=== PATIENT | male | born 1990 | race Caucasian/White ===

== ENCOUNTER 2018-04-11 11:32 | Emergency (ER) | payer MEDICAID ==
--- NOTE | 2018-04-11 11:51 | EDPHY ---
H & P Stated Complaint: L testicle pain, CP Time Seen by Provider: 04/11/18 11:50 - Personal History Current Tetanus/Diphtheria Vaccine: Yes Current Tetanus Diphtheria and Acellular Pertussis (TDAP): Yes - Medical/Surgical History Hx Asthma: No Hx Chronic Respiratory Disease: No Hx Diabetes: No Hx Cardiac Disease: No Hx Renal Disease: No Hx Cirrhosis: No Hx Alcoholism: No Hx HIV/AIDS: No Hx Splenectomy or Spleen Trauma: No Other PMH: denies - Social History Smoking Status: Never smoked Constitutional: Initial Vital Signs Temperature (C) 36.7 C 04/11/18 11:41 Heart Rate 42 L 04/11/18 11:41 Respiratory Rate 16 04/11/18 11:41 Blood Pressure 123/79 H 04/11/18 11:41 O2 Sat (%) 97 04/11/18 11:41 O2 Delivery Mode Room Air Allergies/Adverse Reactions: No Known Allergies Allergy (Unverified 04/11/18 11:41) Home Medications: Medication Instructions Recorded NK [No Known Home Meds] 04/11/18 Medical Decision Making - Diagnostics Imaging Results: Imaging Impressions Testicular Ultrasound 04/11/18 12:06 Impression: Normal testicular ultrasound. Findings discussed with Fredy Bullock MD at 12:59 hour, 04/11/2018. ED Course/Re-evaluation: CHIEF COMPLAINT: Left testicular pain HISTORY OF PRESENT ILLNESS: This patient is a healthy 27 year old male complaining of left-sided testicular pain. This began one week ago work in the middle of the night when he woke with testicular pain. It has waxed and waned over the past week. He notes an aching discomfort above the testicle in his inguinal region as well. The patient bicycles frequently, noted pain in his testicles a few times while riding. He denies any other known trauma or unusual activities. He denies fever, urinary complaints, abnormal penile discharge, weakness, numbness, or paresthesias, or other associated symptoms. REVIEW OF SYSTEMS: A comprehensive 10 system review of systems is otherwise negative aside from elements mentioned in the history of present illness and medical decision making. PHYSICAL EXAM: HR, BP, O2 Sat, RR. Temp noted General Appearance: Alert, well hydrated, appropriate, and non-toxic appearing. Head: Atraumatic without scalp tenderness or obvious injury Eyes: Pupils equal, round, reactive to light and accommodation, EOMI, no trauma , no injection. Ears: Clear bilaterally, no perforation, normal landmarks Nose: Atraumatic, no rhinorrhea, clear. Throat: There is no erythema or exudates, no lesions, normal tonsils, mucus membranes moist. Neck: Supple, 2+ carotid upstroke, nontender, no lymphadenopathy. Respiratory: No retractions, no distress, no wheezes, and no accessory muscle use. Lungs are clear to auscultation bilaterally. Cardiovascular: Regular rate and rhythm, no murmurs, rubs, or gallops. Bilateral carotid, radial, dorsalis pedis, and posterior tibial pulses intact. Good capillary refill all extremities. Gastrointestinal: Abdomen is soft, nontender, non-distended, no masses, no rebound, no guarding, no peritoneal signs. Musculoskeletal: Normal active ROM of all extremities, atraumatic. Neurological: Alert, appropriate, and interactive. The patient has normal DTRs and non-focal cranial nerves, motor, sensory, and cerebellar exam. Skin: No rashes, good turgor, no nodules on palpation. Past medical history: Denies Past surgical history: Noncontributory Family history: Noncontributory Social history: Single. Employed. Does not abuse tobacco, drugs, or alcohol. DIFFERENTIAL DIAGNOSIS: Includes but not limited to testicular torsion, epididymitis, orchitis, epididymo-orchitis, hydrocele, inguinal muscle strain. MEDICAL DECISION [id number] y/o male presents with left testicular pain onset one week ago. Plan for testicular ultrasound. Plan for labs including UA, GC/chlamydia. UA is unremarkable. 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 Testicular ultrasound is unremarkable. 13:04 Patient's symptoms likely consistent with inguinal muscle strain. Reassessed. Discussed imaging and laboratory results. Plan to discharge home in good condition. He will take ibuprofen for pain relief. Follow up and return precautions discussed. He is comfortable with this plan. - Data Points Laboratory Results: 04/11/18 04/11/18 11:50 11:50 Urine Color PALE YELLOW Urine Appearance CLEAR Urine pH 7.0 (5.0-7.5) Ur Specific Tucker 1.001 L (1.002-1.030) Urine Protein NEGATIVE (NEGATIVE) Urine Ketones NEGATIVE (NEGATIVE) Urine Blood NEGATIVE (NEGATIVE) Urine Nitrate NEGATIVE (NEGATIVE) Urine Bilirubin NEGATIVE (NEGATIVE) Urine Urobilinogen NEGATIVE EU EU (0.2-1.0) Ur Leukocyte Esterase NEGATIVE (NEGATIVE) Urine RBC NONE SEEN /hpf /hpf (0-3) Urine WBC 0-1 /hpf /hpf (0-3) Ur Epithelial Cells NONE SEEN /lpf /lpf (NONE-1+) Urine Mucus TRACE /lpf /lpf (NONE-1+) Urine Glucose NEGATIVE (NEGATIVE) C.trachomatis RNA (TMA) Pending N.gonorrhoeae RNA (TMA) Pending Departure - Departure Disposition: Home, Routine, Self-Care Clinical Impression: Strain of left inguinal muscle Qualifiers: Encounter type: initial encounter Qualified Code(s): S39.013A - Strain of muscle, fascia and tendon of pelvis, initial encounter Condition: Good Instructions: Groin Strain (ED) Additional Instructions: 1. Follow up with your primary care provider. 2. Take ibuprofen 600mg every 6-8 hours as needed for pain. 3. Return to the emergency department for worsening pain, swelling, numbness, weakness or other concerns. Referrals: Edie Bravo MD [Medical Doctor] - As per Instructions Report Scribed for: Fredy Bullock Report Scribed by: Brittni Mcgee Date of Report: 04/11/18 Time of Report: 13:02
[2018-04-11 13:14] VITALS: BP 122/86
[2018-04-12 11:02] LABS: GC AMPLIFICATION GENPROBE NEGATIVE (NEGATIVE)
== END 2018-04-11 13:10 | disposition home or self-care (01) ==
DX: N50.819 Testicular pain, unspecified (principal); S39.013A Strain of muscle, fascia and tendon of pelvis, initial encounter